=== PATIENT | female | born 1970 | race Caucasian/White ===

== ENCOUNTER 2021-10-30 10:47 | Day surgery (SDC) | payer MEDICAID ==
[2021-10-28 11:46] LABS: COVID AG,FIA SOURCE NASOPHARYNGEAL
[~2021-10-30] VITALS: Ht 170.2 cm; Wt 103.4 kg
[~2021-10-30 10:47] MED LIST: BACL10TA PO; GABA-1216 PO; HYDR25TA2 PO; METH-812 PO; NAPR-1024 PO; ONDA-104 PO; PROM12.511 PR; SODIUM CHLORIDE 0.9% 1,000 ML ONE; TRAM50TA4 PO
[2021-10-30] MEDS ORDERED: SODIUM CHLORIDE 0.9% 1,000 ML IV ONE (11:30)
[2021-10-30 11:56] LABS: GLUCOMETER DEV NAME(LOC) SDS.; GLUCOSE,POINT OF CARE 121 MG/DL (70-110)
[2021-10-30 14:51] LABS: GLUCOMETER DEV NAME(LOC) SDS.; GLUCOSE,POINT OF CARE 106 MG/DL (70-110)
== END 2021-10-30 14:45 | disposition home or self-care (01) ==
LOC: SURGERY 10:47
PROVIDERS: ATTEND Internal Medicine Gastroenterology
DX: R13.10 Dysphagia, unspecified (principal); K44.9 Diaphragmatic hernia without obstruction or gangrene; K29.70 Gastritis, unspecified, without bleeding; I10 Essential (primary) hypertension; E11.9 Type 2 diabetes mellitus without complications; Z86.73 Personal history of transient ischemic attack (TIA), and cerebral infarction without residual deficits; J45.909 Unspecified asthma, uncomplicated
CPT/HCPCS: 43239; 82962; 87426; 88305; C9803; J7030